=== PATIENT | male | born 1985 | race African-American/Black ===

== ENCOUNTER 2024-08-30 08:15 | Emergency (ER) | payer SELFPAY ==
[~2024-08-30] VITALS: Ht 177.8 cm; Wt 92.9 kg
[2024-08-30 08:50] LABS: BASO # 0.02 K/mm3 (0.02-0.10); HEMATOCRIT 44.8 % (42.0-52.0); HEMOGLOBIN 14.3 g/dL (13.5-18.0); LYMPH# 0.92 K/mm3 (1.50-4.00); MEAN CELL VOLUME 103 fl (78-100); MEAN CORPUSCULAR HEMOGLOBIN 33 pg (27-31); MEAN CORPUSCULAR HGB CONC 32 g/dL (33-37); MEAN PLATELET VOLUME 9.1 fl (7.4-10.4); NEU # 9.57 K/mm3 (1.40-6.50); PLATELET COUNT 195 K/mm3 (130-400); RED BLOOD COUNT 4.37 M/mm3 (4.20-5.60); RED CELL DISTRIBUTION WIDTH 12.8 % (11.5-14.5); WHITE BLOOD COUNT 11.3 K/mm3 (4.8-10.8)
[2024-08-30 08:59] LABS: ALBUMIN 4.9 g/dL (3.5-5.0); SODIUM 140 mmol/L (136-145)
[2024-08-30 09:00] LABS: CALCIUM 10.4 mg/dL (8.3-10.5)
[2024-08-30 09:01] LABS: GLUCOSE 100 mg/dL (75-110); TOTAL PROTEIN 8.3 g/dL (6.4-8.3)
[2024-08-30 09:02] LABS: CARBON DIOXIDE 22 mmol/L (22-29)
[2024-08-30 09:06] LABS: AST-SGOT 102 U/L (5-34)
[2024-08-30 09:08] LABS: ALT/SGPT 169 U/L (0-55)
[2024-08-30 09:22] LABS: ACETAMINOPHEN < 1 ug/mL; ALCOHOL IN-HOUSE < 10 mg/dL (<10); TROPONIN-I < 0.030 ng/mL (0.00-0.033)
[2024-08-30 09:41] LABS: PH-URINE 5.5 (5.0 - 8.0); URINE APPEARANCE SLIGHTLY CLOUDY (CLEAR); URINE BILIRUBIN 1+ (NEGATIVE); URINE COLOR YELLOW (YELLOW); URINE GLUCOSE NEGATIVE (NEGATIVE); URINE KETONE 1+ (NEGATIVE); URINE PROTEIN(semi-quant) NEGATIVE (NEGATIVE)
[2024-08-30 09:42] LABS: URINE BLOOD NEGATIVE (NEGATIVE); URINE LEUKOCYTE ESTERASE NEGATIVE (NEGATIVE); URINE NITRATE NEGATIVE (NEGATIVE); URINE WBC 0-1 /hpf (0-3)
[2024-08-30] MEDS ORDERED: Ibuprofen 800 MG TAB PO ONE (09:45)
[2024-08-30 10:29] VITALS: BP 114/77
[2024-08-30 12:29] VITALS: BP 116/69
[2024-08-30 14:17] VITALS: BP 102/63
[2024-08-30 16:29] VITALS: BP 113/69
[2024-08-30 18:29] VITALS: BP 124/69
[2024-08-31 01:14] VITALS: BP 97/64
[2024-08-31 11:17] VITALS: BP 117/74
== END 2024-08-31 11:21 ==
LOC: ED 08:15
PROVIDERS: Family Medicine
DX: R45.851 Suicidal ideations (principal); R05.9 Cough, unspecified